=== PATIENT | male | born 1995 | race Hispanic/Latino ===

== ENCOUNTER → 2018-03-04 | Outpatient (CLI) | payer OTHER | END | disposition home or self-care (01) | LOC: OIH 14:10 | PROVIDERS: ATTEND Internal Medicine | DX: M46.86 Other specified inflammatory spondylopathies, lumbar region (principal) | CPT/HCPCS: 72100 ==

== ENCOUNTER 2021-09-09 06:22 | Emergency (ER) | payer OTHER ==
[~2021-09-09] VITALS: Ht 180.3 cm; Wt 118.4 kg
[2021-09-09 06:42] VITALS: BP 137/84
[2021-09-09 07:50] LABS: HEMATOCRIT 40.4 % (42-54); MEAN CORPUSCULAR HGB CONC 33.9 g/dL (32.0-36.0); MEAN CORPUSCULAR VOLUME 88.4 fL (79-99); PLATELET COUNT (AUTO) 204 K/uL (130-400); RED BLOOD CELL COUNT(AUTO) 4.57 MIL/uL (4.50-6.20); RED CELL DISTRIBUTION WIDTH 12.1 % (11.0-15.5)
[2021-09-09 08:12] LABS: ALANINE AMINOTRANSFERASE 32 U/L (12-78); ALBUMIN 3.6 g/dL (3.5-5.0); ASPARTATE AMINOTRANSFERASE 24 U/L (10-37); CARBON DIOXIDE 30 mmol/L (21-32); CHLORIDE 102 mmol/L (101-111); CREATININE 0.8 mg/dL (0.5-1.5); GLOMERULAR FILTR. RATE CALC 127 mL/min (>60); GLUCOSE,RANDOM 108 mg/dL (70-105); POTASSIUM 3.8 mmol/L (3.5-5.1); SODIUM SERUM 141 mmol/L (136-145); TOTAL PROTEIN, SERUM 7.1 g/dL (6.0-8.3); UREA NITROGEN, BLOOD 11 mg/dL (7-18)
[2021-09-09 09:04] LABS: EOSINOPHILS % (MANUAL) 2 % (1-6); LYMPHOCYTES % (MANUAL) 37 % (22-44); MAN.DIFF COMMENT-IMPRESSION MANUAL DIFFERENTIAL; MONOCYTES % (MANUAL) 6 % (2-9); PLATELET MORPHOLOGY COMMENT ADEQUATE; SEGMENTED NEUTROPHILS % 55 % (40-70)
[2021-09-09] MEDS ORDERED: ACYC-138 PO (09:04)
[2021-09-09] MEDS ORDERED: GABA300S PO (09:04)
== END 2021-09-09 09:24 | disposition home or self-care (01) ==
LOC: EDH 06:22
DX: G51.0 Bell's palsy (principal)
CPT/HCPCS: 36415; 70450; 80053; 85025

== ENCOUNTER 2022-03-31 01:54 | Inpatient (IN) | payer BC ==
[~2022-03-31] VITALS: Ht 180.3 cm; Wt 130.5 kg
[~2022-03-31 01:54] MED LIST: ACYC-138 PO; GABA300S PO
[2022-03-31 02:25] LABS: APPEARANCE,URINE CLEAR (CLEAR); BILIRUBIN,URINE NEGATIVE (NEGATIVE); COLOR,URINE YELLOW (YELLOW); GLUCOSE, URINE (UA) TRACE mg/dL (NEGATIVE); KETONES,URINE NEGATIVE (NEGATIVE); LEUKOCYTE ESTERASE ,URINE NEGATIVE Leu/uL (NEGATIVE); NITRATE,URINE NEGATIVE (NEGATIVE); OCCULT BLOOD,URINE NEGATIVE (NEGATIVE); PROTEIN,URINE 10 mg/dL (NEGATIVE)
[2022-03-31] MEDS ORDERED: VANCOMYCIN 1G/250ML KIT 250 ML IV ONE (02:27)
[2022-03-31] MEDS ORDERED: ZOSYN 3.375GM +NS 50ML IVPB ONE (02:30)
[2022-03-31] MEDS ORDERED: IBUPROFEN 600 MG TABLET PO ONE (02:30)
[2022-03-31] MEDS ORDERED: 0.9%NACL 1000ML 1,000 ML IV SCH (02:30)
[2022-03-31] MEDS ORDERED: ACETAMINOPHEN 500 MG TABLET PO ONE (02:30)
[2022-03-31] MEDS ORDERED: 0.9%NACL 1000ML 2,000 ML IV ONE (02:30)
[2022-03-31] MEDS ORDERED: VANCOMYCIN 1G VIAL IVPB ONE (02:30)
[2022-03-31] MEDS ORDERED: ONDANSETRON 4MG INJ IVP ONE (02:30)
[2022-03-31] MEDS ORDERED: MORPHINE 2 MG SYG IVP ONE ×2 (02:30→03:30)
[2022-03-31 02:36] LABS: BASOPHILS % (AUTO) 0.3 % (0.0-5.0); EOSINOPHILS % (AUTO) 0.5 % (0.0-8.0); LYMPHOCYTES % (AUTO) 15.1 % (21.0-51.0); MEAN CORPUSCULAR HEMOGLOBIN 30.7 pg (27.0-33.0); MEAN CORPUSCULAR HGB CONC 34.2 g/dL (32.0-36.0); MEAN CORPUSCULAR VOLUME 89.6 fL (79-99); MONOCYTES % (AUTO) 8.7 % (3.0-13.0); NEUTROPHILS % (AUTO) 74.9 % (40.0-77.0); PLATELET COUNT (AUTO) 259 K/uL (130-400); RED BLOOD CELL COUNT(AUTO) 4.24 MIL/uL (4.50-6.20); RED CELL DISTRIBUTION WIDTH 12.1 % (11.0-15.5); WHITE BLOOD COUNT (AUTO) 20.8 K/uL (4.8-10.8)
[2022-03-31 02:46] LABS: INR 0.98 (0.85-1.15); PROTHROMBIN TIME 10.7 SEC (9.6-11.6)
[2022-03-31 02:47] LABS: PARTIAL THROMBOPLASTIN TIME 30.5 SEC (26.3-35.5)
[2022-03-31 02:52] LABS: CREATININE 0.8 mg/dL (0.5-1.5); POTASSIUM 3.7 mmol/L (3.5-5.1)
[2022-03-31 02:57] LABS: ALBUMIN 3.2 g/dL (3.5-5.0); TOTAL PROTEIN, SERUM 7.9 g/dL (6.0-8.3)
[2022-03-31] MEDS ORDERED: IOHEXOL 350 MG/ML 100ML INFUS..BTL IV ONE (02:58)
[2022-03-31] MEDS ORDERED: KCL 20 MEQ ERTAB PO PRN (03:00)
[2022-03-31] MEDS ORDERED: POTASSIUM CHLORIDE 10% ELIXIR 20 MEQ/15 ML UDCUP PO PRN (03:00)
[2022-03-31] MEDS ORDERED: MORPHINE 4 MG SYG ONE (03:31)
[2022-03-31] MEDS ORDERED: CEFEPIME HCL 2 GM VIAL IVP SCH (05:30)
[2022-03-31] MEDS ORDERED: LACTATED RINGERS 1000ML 2,190 ML IV ONE (05:30)
[2022-03-31] MEDS ORDERED: ACETAMINOPHEN 325 MG TAB PO PRN (05:30)
[2022-03-31] MEDS ORDERED: VANCOMYCIN PROTOCOL PER PHARMACY IV PRN (05:30)
[2022-03-31] MEDS: CEFEPIME HCL 2 GM VIAL IVPB SCH ×2 (07:00→18:51)
[2022-03-31] MEDS: ENOXAPARIN SODIUM 40 MG/0.4 ML SYRINGE SQ SCH (09:12)
[2022-03-31] MEDS: FAMOTIDINE 20MG TAB PO SCH ×2 (09:12→19:57)
[2022-03-31] MEDS: VANCOMYCIN 1.5 GM/250 ML BAG 250 ML IV SCH ×2 (09:12→22:18)
[2022-03-31 11:20] VITALS: BP 139/71
[2022-03-31 11:50] LABS: HEMOGLOBIN A1C 5.9 % (4.0-6.0)
[2022-03-31] MEDS ORDERED: BUSP15 PO (12:10)
[2022-03-31] MEDS ORDERED: ALPR1TAB7 PO (12:10)
[2022-03-31] MEDS ORDERED: HYDR-3422 PO (12:10)
[2022-03-31 16:00] VITALS: BP 146/79
[2022-03-31] MEDS: ACETAMINOPHEN 325 MG TAB PO PRN ×2 (16:07→20:11)
[2022-03-31] MEDS: ONDANSETRON 4MG INJ IV PRN (19:58)
[2022-03-31] MEDS: MORPHINE 4 MG SYG IV PRN (19:58)
[2022-03-31 20:00] VITALS: BP 157/81
[2022-04-01 00:06] VITALS: BP 144/86
[2022-04-01] MEDS: ACETAMINOPHEN 325 MG TAB PO PRN ×2 (00:18→21:52)
[2022-04-01] MEDS ORDERED: TRAZODONE HCL 50 MG TAB ONE (01:15)
[2022-04-01] MEDS: MORPHINE 4 MG SYG IV PRN ×2 (01:16→18:05)
[2022-04-01] MEDS ORDERED: TRAZODONE HCL 50 MG TAB PO PRN (01:30)
[2022-04-01 04:00] VITALS: BP 139/85
[2022-04-01] MEDS ORDERED: KETOROLAC 30MG VIAL (30MG/ML) IVP ONE (04:00)
[2022-04-01 05:34] LABS: BASOPHILS % (AUTO) 0.4 % (0.0-5.0); HEMATOCRIT 35.9 % (42-54); LYMPHOCYTES % (AUTO) 6.1 % (21.0-51.0); MEAN CORPUSCULAR HEMOGLOBIN 30.7 pg (27.0-33.0); MEAN CORPUSCULAR VOLUME 90.2 fL (79-99); MONOCYTES % (AUTO) 6.9 % (3.0-13.0); NEUTROPHILS % (AUTO) 85.3 % (40.0-77.0); PLATELET COUNT (AUTO) 237 K/uL (130-400); RED BLOOD CELL COUNT(AUTO) 3.98 MIL/uL (4.50-6.20); WHITE BLOOD COUNT (AUTO) 22.4 K/uL (4.8-10.8)
[2022-04-01 06:16] LABS: CREATININE 0.7 mg/dL (0.5-1.5); MAGNESIUM 1.4 mg/dL (1.80-2.40); PHOSPHORUS 3.5 mg/dL (2.5-4.9); POTASSIUM 3.5 mmol/L (3.5-5.1)
[2022-04-01] MEDS ORDERED: POTASSIUM CHLORIDE 10% ELIXIR 20 MEQ/15 ML UDCUP PO PRN (07:30)
[2022-04-01] MEDS ORDERED: KCL 20 MEQ ERTAB PO PRN (07:30)
[2022-04-01] MEDS ORDERED: MAGNESIUM 2GM PREMIX 50ML 50 ML IV PRN (07:30)
[2022-04-01] MEDS ORDERED: LIDOCAINE HCL-MPF 1% 2ML VIAL IV PRN (07:30)
[2022-04-01] MEDS ORDERED: POTASSIUM CHLORIDE 20MEQ/100ML 100 ML IV PRN (07:30)
[2022-04-01 08:00] VITALS: BP 143/70
[2022-04-01] MEDS: ENOXAPARIN SODIUM 40 MG/0.4 ML SYRINGE SQ SCH (08:31)
[2022-04-01] MEDS: FAMOTIDINE 20MG TAB PO SCH ×2 (08:31→20:01)
[2022-04-01] MEDS: CEFEPIME HCL 2 GM VIAL IVPB SCH ×2 (08:32→18:04)
[2022-04-01] MEDS: VANCOMYCIN 1.5 GM/250 ML BAG 250 ML IV SCH (08:32)
[2022-04-01] MEDS: MORPHINE 2 MG SYG IV PRN ×2 (08:44→22:46)
[2022-04-01 12:59] VITALS: BP 104/83
[2022-04-01] MEDS ORDERED: LIDOCAINE HCL MPF 1% 5ML VIAL INJ SCH (15:30)
[2022-04-01 19:00] VITALS: BP 142/72
[2022-04-01] MEDS ORDERED: COMPOUND IV REFRIGERATED 1 EACH IVSOLN MISC PRN (21:00)
[2022-04-01] MEDS: VANCOMYCIN 2GM/500 ML BAG 500 ML IV SCH (21:52)
[2022-04-02] VITALS (22 sets, daily range): BP systolic 114–146; BP diastolic 62–89
[2022-04-02] MEDS: MORPHINE 2 MG SYG IV PRN ×2 (04:25→08:59)
[2022-04-02 05:38] LABS: HEMATOCRIT 34.8 % (42-54); MEAN CORPUSCULAR HGB CONC 33.6 g/dL (32.0-36.0); MEAN CORPUSCULAR VOLUME 92.3 fL (79-99); RED BLOOD CELL COUNT(AUTO) 3.77 MIL/uL (4.50-6.20); RED CELL DISTRIBUTION WIDTH 12.1 % (11.0-15.5); WHITE BLOOD COUNT (AUTO) 25.4 K/uL (4.8-10.8)
[2022-04-02 05:52] LABS: ALBUMIN 2.4 g/dL (3.5-5.0); CREATININE 0.8 mg/dL (0.5-1.5); POTASSIUM 3.4 mmol/L (3.5-5.1); TOTAL PROTEIN, SERUM 7.1 g/dL (6.0-8.3)
[2022-04-02] MEDS: CEFEPIME HCL 2 GM VIAL IVPB SCH ×2 (07:30→18:52)
[2022-04-02] MEDS: FAMOTIDINE 20MG TAB PO SCH ×2 (08:59→21:00)
[2022-04-02] MEDS: VANCOMYCIN 2GM/500 ML BAG 500 ML IV SCH (10:10)
[2022-04-02] MEDS ORDERED: MIDAZOLAM HCL 1 MG/ML 2ML VIAL ONE (19:46)
[2022-04-02] MEDS ORDERED: LIDOCAINE PF 100MG/5ML (2%) SYRINGE 5ML ONE ×2 (19:46)
[2022-04-02] MEDS ORDERED: FENTANYL CITRATE PF 50 MCG/1 ML 2ML VIAL ONE ×3 (19:46→21:02)
[2022-04-02] MEDS ORDERED: PROPOFOL 10 MG/ML 20ML VIAL IV ONE (19:46)
[2022-04-02] MEDS ORDERED: ROCURONIUM 10MG/1ML SYR 10 MG/ML ML ONE (19:47)
[2022-04-02] MEDS ORDERED: ONDANSETRON 4MG INJ ONE (20:15)
[2022-04-02] MEDS ORDERED: DEXAMETHASONE SOD PHOSPHATE 10MG/ML 1ML VIAL ONE (20:15)
[2022-04-02] MEDS ORDERED: NEOSTIGMINE 5MG/5ML SYR IV ONE (20:56)
[2022-04-02] MEDS ORDERED: GLYCOPYRROLATE 1 MG/5 ML SYRINGE ONE (20:56)
[2022-04-02] MEDS ORDERED: MEPERIDINE-PF 25 MG/ML SYG ONE ×2 (21:33→21:38)
[2022-04-02] MEDS ORDERED: HYDROMORPHONE 1 MG INJ ONE (21:38)
[2022-04-02] MEDS: ONDANSETRON 4MG INJ IV PRN (22:13)
[2022-04-03] VITALS (10 sets, daily range): BP systolic 112–135; BP diastolic 50–82
[2022-04-03] MEDS: VANCOMYCIN 2GM/500 ML BAG 500 ML IV SCH ×3 (00:09→22:39)
[2022-04-03] MEDS: CEFEPIME HCL 2 GM VIAL IVPB SCH ×2 (06:39→19:16)
[2022-04-03 08:03] LABS: BASOPHILS % (AUTO) 0.2 % (0.0-5.0); HEMATOCRIT 32.7 % (42-54); LYMPHOCYTES % (AUTO) 4.6 % (21.0-51.0); MEAN CORPUSCULAR HEMOGLOBIN 30.5 pg (27.0-33.0); MEAN CORPUSCULAR HGB CONC 33.6 g/dL (32.0-36.0); MEAN CORPUSCULAR VOLUME 90.6 fL (79-99); MONOCYTES % (AUTO) 4.4 % (3.0-13.0); NEUTROPHILS % (AUTO) 88.3 % (40.0-77.0); PLATELET COUNT (AUTO) 252 K/uL (130-400); RED BLOOD CELL COUNT(AUTO) 3.61 MIL/uL (4.50-6.20); RED CELL DISTRIBUTION WIDTH 11.9 % (11.0-15.5); WHITE BLOOD COUNT (AUTO) 23.3 K/uL (4.8-10.8)
[2022-04-03 08:20] LABS: ALBUMIN 2.1 g/dL (3.5-5.0); CREATININE 0.7 mg/dL (0.5-1.5); POTASSIUM 3.8 mmol/L (3.5-5.1); TOTAL PROTEIN, SERUM 6.8 g/dL (6.0-8.3)
[2022-04-03] MEDS: FAMOTIDINE 20MG TAB PO SCH ×2 (09:56→22:39)
[2022-04-03] MEDS: MORPHINE 2 MG SYG IV PRN ×2 (17:03→23:24)
[2022-04-04 03:22] VITALS: BP 125/74
[2022-04-04] MEDS: MORPHINE 2 MG SYG IV PRN (03:33)
[2022-04-04] MEDS: CEFEPIME HCL 2 GM VIAL IVPB SCH ×2 (06:17→18:22)
[2022-04-04] MEDS: VANCOMYCIN 1.5 GM/250 ML BAG 250 ML IV SCH ×3 (06:54→20:30)
[2022-04-04 08:00] VITALS: BP 124/71
[2022-04-04] MEDS: FAMOTIDINE 20MG TAB PO SCH ×2 (08:55→22:15)
[2022-04-04] MEDS: MORPHINE 4 MG SYG IVP PRN ×3 (10:56→20:28)
[2022-04-04 12:02] VITALS: BP 150/73
[2022-04-04 20:58] VITALS: BP 136/70
== END 2022-04-04 22:21 | DRG 854 ==
LOC: EDH 01:54 → EDHIP 05:19 → 3AH 11:19
PROVIDERS: ADMIT Internal Medicine; ATTEND Internal Medicine
PROC: 0JBB0ZZ Excision of Perineum Subcutaneous Tissue and Fascia, Open Approach (ICD-10-PCS; principal; 2022-04-02 19:46)
DX: A41.9 Sepsis, unspecified organism (principal); E11.52 Type 2 diabetes mellitus with diabetic peripheral angiopathy with gangrene; L03.116 Cellulitis of left lower limb; L02.416 Cutaneous abscess of left lower limb; L02.215 Cutaneous abscess of perineum; L03.315 Cellulitis of perineum; Z68.41 Body mass index [BMI] 40.0-44.9, adult; N50.89 Other specified disorders of the male genital organs; E83.42 Hypomagnesemia; N49.2 Inflammatory disorders of scrotum; N49.3 Fournier gangrene; I10 Essential (primary) hypertension; E66.01 Morbid (severe) obesity due to excess calories; E11.65 Type 2 diabetes mellitus with hyperglycemia; Z83.3 Family history of diabetes mellitus; Z79.4 Long term (current) use of insulin
CPT/HCPCS: 10060; 36415; 74177; 76870; 80048; 80053; 80202; 81003; 82550; 83036; 83605; 83735; 84100; 84145; 84484; 85025; 85027; 85610; 85730; 87040; 87088; 87635; 93306; 93356; G0378; J0692; J1100; J1170; J1650; J1885; J2001; J2175; J2250; J2270; J2405; J2543; J2704; J2710; J3010; J3370; J3475; J3490; J7030; J7120; Q9967

== ENCOUNTER 2022-07-12 18:28 | Emergency (ER) | payer BC ==
[~2022-07-12] VITALS: Ht 180.3 cm; Wt 127.0 kg
[~2022-07-12 18:28] MED LIST changes: -ACYC-138 PO; +ALPR1TAB7 PO; +BUSP15 PO; -GABA300S PO; +HYDR-3422 PO
[2022-07-12 22:00] LABS: APPEARANCE,URINE CLEAR (CLEAR); BILIRUBIN,URINE NEGATIVE (NEGATIVE); COLOR,URINE LIGHT-YELLOW (YELLOW); GLUCOSE, URINE (UA) NEGATIVE (NEGATIVE); KETONES,URINE NEGATIVE (NEGATIVE); LEUKOCYTE ESTERASE ,URINE NEGATIVE Leu/uL (NEGATIVE); NITRATE,URINE NEGATIVE (NEGATIVE); OCCULT BLOOD,URINE NEGATIVE (NEGATIVE); PROTEIN,URINE NEGATIVE (NEGATIVE); UROBILINOGEN,URINE 0.2 mg/dL (0.2-1.0)
[2022-07-12] MEDS ORDERED: ACETAMINOPHEN 325 MG TAB PO ONE (22:00)
[2022-07-12] MEDS ORDERED: 0.9%NACL 1000ML 2,259 ML IV ONE (22:00)
[2022-07-12] MEDS ORDERED: ONDANSETRON 4MG INJ IVP ONE (22:00)
[2022-07-12] MEDS ORDERED: ZOSYN 3.375GM +NS 50ML IVPB ONE (22:00)
[2022-07-12] MEDS ORDERED: VANCOMYCIN 1G/250ML KIT 250 ML IV ONE (22:00)
[2022-07-12 22:03] LABS: BACTERIA,URINE FEW /HPF (None Seen); MUCUS,URINE RARE LPF (None Seen); RBC,URINE 0-1 /HPF (0-1); SQUAMOUS EPITHELIAL CELL,UR RARE /HPF (0-2); WBC,URINE 0-1 /HPF (0-1)
[2022-07-12 22:12] LABS: BASOPHILS % (AUTO) 0.6 % (0.0-5.0); EOSINOPHILS % (AUTO) 3.9 % (0.0-8.0); HEMATOCRIT 45.7 % (42-54); LYMPHOCYTES % (AUTO) 28.5 % (21.0-51.0); MEAN CORPUSCULAR HGB CONC 33.7 g/dL (32.0-36.0); MEAN CORPUSCULAR VOLUME 89.1 fL (79-99); MONOCYTES % (AUTO) 5.9 % (3.0-13.0); NEUTROPHILS % (AUTO) 60.7 % (40.0-77.0); PLATELET COUNT (AUTO) 232 K/uL (130-400); RED BLOOD CELL COUNT(AUTO) 5.13 MIL/uL (4.50-6.20); RED CELL DISTRIBUTION WIDTH 12.2 % (11.0-15.5); WHITE BLOOD COUNT (AUTO) 11.3 K/uL (4.8-10.8)
[2022-07-12 22:24] LABS: CREATININE 0.7 mg/dL (0.5-1.5); POTASSIUM 4.2 mmol/L (3.5-5.1)
[2022-07-12] MEDS ORDERED: IOHEXOL-350 75 ML VIAL IV ONE (23:07)
[2022-07-13] MEDS ORDERED: SULF1TAB42 PO (00:07)
[2022-07-13] MEDS ORDERED: MUPI22OI2 TP (00:07)
[2022-07-13] MEDS ORDERED: CEPH500C2 PO (00:07)
[2022-07-13] MEDS ORDERED: IBUP-2070 PO (00:07)
[2022-07-13 01:05] VITALS: BP 116/60
== END 2022-07-13 01:18 | disposition home or self-care (01) ==
LOC: EDH 18:28
DX: L03.315 Cellulitis of perineum (principal); F41.9 Anxiety disorder, unspecified; F32.A Depression, unspecified; Z79.899 Other long term (current) drug therapy
CPT/HCPCS: 99285; 74177; 96365; 96375; 80053; 83690; 85025; 87040 ×2; 83605; 81001; 36415; 96368; 72192; J7030; J2405; J2543; J3370; Q9967

== ENCOUNTER 2023-03-21 07:04 | Emergency (ER) | payer BC ==
[~2023-03-21] VITALS: Ht 180.3 cm; Wt 127.0 kg
[~2023-03-21 07:04] MED LIST changes: +CEPH500C2 PO; +IBUP-2070 PO; +MUPI22OI2 TP; +SULF1TAB42 PO
[2023-03-21 07:53] LABS: BASOPHILS # (AUTO) 0.07 K/uL (0.00-0.20); BASOPHILS % (AUTO) 0.7 % (0.0-5.0); EOSINOPHILS # (AUTO) 0.57 K/uL (0.00-0.70); EOSINOPHILS % (AUTO) 5.4 % (0.0-8.0); HEMATOCRIT 43.9 % (42-54); IMMATURE GRANULOCYTE ABSOLUTE 0.05 K/uL (0-1); LYMPHOCYTES # (AUTO) 3.9 K/uL (1.0-4.8); LYMPHOCYTES % (AUTO) 37.1 % (21.0-51.0); MEAN CORPUSCULAR HEMOGLOBIN 30.9 pg (27.0-33.0); MEAN CORPUSCULAR HGB CONC 33.5 g/dL (32.0-36.0); MEAN CORPUSCULAR VOLUME 92.4 fL (79-99); MONOCYTES # (AUTO) 0.8 K/uL (0.1-1.0); MONOCYTES % (AUTO) 7.7 % (3.0-13.0); NEUTROPHILS # (AUTO) 5.1 K/uL (1.8-7.7); NEUTROPHILS % (AUTO) 48.6 % (40.0-77.0); PLATELET COUNT (AUTO) 210 K/uL (130-400); RED BLOOD CELL COUNT(AUTO) 4.75 MIL/uL (4.50-6.20); RED CELL DISTRIBUTION WIDTH 12.1 % (11.0-15.5); WHITE BLOOD COUNT (AUTO) 10.6 K/uL (4.8-10.8)
[2023-03-21] MEDS ORDERED: IOHEXOL-350 75 ML VIAL IV ONE (08:03)
[2023-03-21 08:09] LABS: ALBUMIN 3.6 g/dL (3.5-5.0); BILIRUBIN,TOTAL 0.3 mg/dL (0.2-1.0); CREATININE 0.8 mg/dL (0.5-1.5); TOTAL PROTEIN, SERUM 7.4 g/dL (6.0-8.3)
[2023-03-21 08:52] VITALS: BP 121/66; PULSE 80; RESP 18; O2SAT 99
[2023-03-21] MEDS ORDERED: SULF1TAB42 PO (09:15)
== END 2023-03-21 09:31 | disposition home or self-care (01) ==
LOC: EDH 07:04
DX: L03.315 Cellulitis of perineum (principal); R10.2 Pelvic and perineal pain; F41.9 Anxiety disorder, unspecified; F32.A Depression, unspecified; Z79.899 Other long term (current) drug therapy
CPT/HCPCS: 99284; 72193; 80053; 85025; 83605; 36415; Q9967

== ENCOUNTER 2023-07-12 06:08 | Emergency (ER) | payer BC ==
[~2023-07-12] VITALS: Ht 180.3 cm; Wt 129.3 kg
[2023-07-12 06:30] LABS: BASOPHILS # (AUTO) 0.07 K/uL (0.00-0.20); BASOPHILS % (AUTO) 0.6 % (0.0-5.0); EOSINOPHILS # (AUTO) 0.38 K/uL (0.00-0.70); EOSINOPHILS % (AUTO) 3.1 % (0.0-8.0); HEMATOCRIT 42.3 % (42-54); IMMATURE GRANULOCYTE ABSOLUTE 0.07 K/uL (0-1); LYMPHOCYTES # (AUTO) 3.9 K/uL (1.0-4.8); LYMPHOCYTES % (AUTO) 32.2 % (21.0-51.0); MEAN CORPUSCULAR HEMOGLOBIN 30.6 pg (27.0-33.0); MEAN CORPUSCULAR VOLUME 87.6 fL (79-99); MONOCYTES # (AUTO) 0.7 K/uL (0.1-1.0); MONOCYTES % (AUTO) 5.9 % (3.0-13.0); NEUTROPHILS % (AUTO) 57.6 % (40.0-77.0); PLATELET COUNT (AUTO) 204 K/uL (130-400); RED BLOOD CELL COUNT(AUTO) 4.83 MIL/uL (4.50-6.20); RED CELL DISTRIBUTION WIDTH 12.1 % (11.0-15.5); WHITE BLOOD COUNT (AUTO) 12.2 K/uL (4.8-10.8)
[2023-07-12 06:40] LABS: INR <= 0.93 (0.85-1.15); PROTHROMBIN TIME 10.7 SEC (9.6-11.6)
[2023-07-12 06:42] LABS: PARTIAL THROMBOPLASTIN TIME 26.5 SEC (26.3-35.5)
[2023-07-12 06:44] LABS: ALBUMIN 3.5 g/dL (3.5-5.0); BILIRUBIN,TOTAL 0.5 mg/dL (0.2-1.0); CREATININE 0.9 mg/dL (0.5-1.3); POTASSIUM 3.8 mmol/L (3.5-5.1); TOTAL PROTEIN, SERUM 7.5 g/dL (6.0-8.3)
[2023-07-12 09:37] VITALS: BP 130/65; PULSE 85; RESP 17; O2SAT 95
== END 2023-07-12 09:58 | disposition home or self-care (01) ==
LOC: EDH 06:08
DX: F41.9 Anxiety disorder, unspecified (principal); R20.2 Paresthesia of skin; F32.A Depression, unspecified; Z79.899 Other long term (current) drug therapy
CPT/HCPCS: 36415; 70450; 80053; 84484; 85025; 85610; 85730; 93005